=== PATIENT | female | born 1945 | race Caucasian/White ===

== ENCOUNTER 2017-01-27 08:34 | Inpatient (IN) | payer MEDICARE, OTHER ==
--- NOTE | 2017-01-27 09:28 | RAD ---
PORTABLE UPRIGHT FRONTAL CHEST RADIOGRAPH: DATE: 01/27/17. COMPARISON: 08/14/09. HISTORY: Short of breath, hypoxia. FINDINGS: FINDINGS: No pneumothorax, pleural fluid, focal consolidation, or alveolar edema. Heart and mediastinal contou rs are grossly unremarkable. The patient is slightly rotated to the right. There is mild pulmonary vascular congestion. IMPRESSION: No lobar consolidation or alveolar edema. POS: [facility]
[2017-01-27 09:34] LABS: #Lymphocytes 0.5 thou/uL (1.20-3.40); #Monocytes 1.8 thou/uL (0.11-0.59); #Neutrophils 17.6 thou/uL (1.40-6.50); %Basophils 0.1 % (0.0-1.0); %Eosinophils 0.2 % (0.0-10.0); %Lymphocytes 2.3 % (21.0-51.0); %Monocytes 9.1 % (0.0-10.0); Mean Platelet Volume 7.2 fL (7.4-10.4); Red Blood Cell (RBC) Count 4.71 mill/uL (4.20-5.40); White Blood Cell (WBC) Count 19.9 thou/uL (4.8-10.8)
[2017-01-27 09:41] LABS: PTT 28.6 SEC (22.9-36.1); Prothrombin Time 14.8 SEC (12.0-14.7)
[2017-01-27 09:55] LABS: ALT (SGPT) 11 U/L (8-55); AST (SGOT) 16 U/L (5-34); Alkaline Phosphatase 72 U/L (40-150); Anion Gap 14 mmol/L (10-20); BUN (Urea Nitrogen) 15 mg/dL (9.8-20.1); Bilirubin, Total 0.7 mg/dL (0.2-1.2); CK (CPK) 91 U/L (29-168); Calc. Creatinine Clearance 0 mL/min (70-130); Calcium 9.2 mg/dL (7.8-10.44); Carbon Dioxide 25 mmol/L (23-31); Chloride 102 mmol/L (98-107); Estimated GFR-MDRD 74; Globulin 3.2 g/dL (2.4-3.5); Protein, Total 6.9 g/dL (6.0-8.3)
[2017-01-27 09:56] LABS: Troponin I 0.076 ng/mL (< 0.028)
[2017-01-27 11:25] LABS: Lactic Acid - Sepsis 1.6 mmol/L (0.5-2.2)
[2017-01-27] MEDS ORDERED: Furosemide 40 MG/4 ML VIAL ONE (11:34)
[2017-01-27] MEDS ORDERED: Acetaminophen 325 MG TAB ONE (11:36)
[2017-01-27 12:36] LABS: Bilirubin Negative (Negative); Blood, Urine Moderate (Negative); Glucose, Urine (Dipstick) Negative (Negative); Ketone, Urine Trace mg/dL (Negative); Nitrite Negative (Negative); Protein, Urine (Dipstick) 300 mg/dL (Neg-Trace)
[2017-01-27 12:38] LABS: Bacteria/HPF 4+ HPF (None Seen); Hyaline Casts/LPF 0-3 HYALINE CAST LPF (0-3 Hyaline); Squamous Epithelial 0-3 HPF (0-3)
[2017-01-27 12:52] LABS: Yeast-All Forms None Seen HPF (None Seen)
[2017-01-27 13:29] LABS: Troponin I 0.161 ng/mL (< 0.028)
[2017-01-27] MEDS ORDERED: Levofloxacin 500 mg/D5W 100 ml Premix Bag ONE (13:29)
[2017-01-27] MEDS ORDERED: Acetaminophen 325 MG TAB PO PRN (14:18)
[2017-01-27] MEDS ORDERED: Ondansetron HCl/PF 4 MG/2 ML Vial IVP PRN (14:18)
[2017-01-27] MEDS ORDERED: Ondansetron ODT 4 MG TAB SL PRN (14:18)
[2017-01-27 15:47] LABS: Troponin I 0.187 ng/mL (< 0.028)
[2017-01-27] MEDS ORDERED: Dextrose 5% in Water 1,000 ML IV PRN (16:30)
[2017-01-27] MEDS ORDERED: Dextrose 50% Abboject 50 ML SYRINGE SLOW IVP PRN (16:30)
[2017-01-27] MEDS ORDERED: HumaLOG 300 UNITS/3 ML VIAL SC PRN (16:30)
[2017-01-27] MEDS ORDERED: Calcium Carbonate 500 MG ChewTAB PO PRN (16:30)
[2017-01-27 17:11] LABS: Hemoglobin A1c 5.1 % (4.0-6.0)
[2017-01-27] MEDS: Nicotine 14 MG PATCH TD SCH ×2 (17:46→21:08)
--- NOTE | 2017-01-27 19:28 | HP ---
CHIEF COMPLAINT: Shortness of breath. HISTORY OF PRESENT ILLNESS: This is a 71-year-old pleasant lady, who was apparently in usual state o f health, started getting more and more short of breath in the last couple of days. She went to [facility] because she thought she had a pneumonia on Friday. They did a quick evaluation in the ER and sent her back home because they did not find anything. Over the weekend, she got progressivel y worse to the point that she could not even move, so she called 911 and came into the hospital for f urther evaluation and treatment. She denies any fever or chills. The patient denies any chest pain or palpitations. The patient in the ER was found to be in atrial fibrillation with RVR and was put o n Cardizem drip and admitted to the hospital for evaluation and treatment of that. Patient denies an y fever, chills, diarrhea, dysuria, or polyuria. PAST MEDICAL HISTORY: Significant for hypertension, hypothyroidism, diet controlled diabetes, histor y of morbid obesity status post lap band and has lost 70 pounds and has stopped her diabetes medicati ons for that. Patient complains of itching in the intertriginous areas as well possibly secondary to fungal infection. PAST SURGICAL HISTORY: Significant for lap band, tonsil surgery, history of cardiac catheterization done 2 months back at [facility] which was apparently normal according to the patient. SOCIAL HISTORY: Positive smoking. No recreational drugs or alcohol use. ALLERGIES: PENICILLIN. MEDICATIONS: Please see MAR. FAMILY HISTORY: Negative for diabetes and hypertension. REVIEW OF SYSTEMS: Significant for shortness of breath; otherwise no fever, no chills, no headache, no eye pain, no hearing loss, no latencies. No cough, no chest pain. No diarrhea, dysuria, or polyu danitza. No memory or mood changes. No neck pain. The patient is significant for itching of the skin a t multiple areas of the fungal infection. PHYSICAL EXAMINATION: VITAL SIGNS: Blood pressure is 190/76, heart rate is 114, respirations 29, pulse ox initially was 70 % on room air, right now she was put on CPAP in the ER, it was 94; right now on 2 liters, it is 90%. GENERAL: Patient is lying in bed right now, in mild respiratory distress. HEENT: Normocephalic. Pupils are equally round and reactive to light. Extraocular movements are in tact. Mucous membranes are moist. NECK: Supple. No JVD. CHEST: Breath sounds heard. Bibasilar rales. HEART: S1 and S2 normal. Right now is rate controlled, is in sinus rhythm. ABDOMEN: Soft, obese. EXTREMITIES: No cyanosis, clubbing, or edema. Distal pulses present. NEUROLOGICAL: Alert, awake, oriented. No cranial deficits. No sensorimotor deficits. SKIN: Shows scaly lesions behind the ear in the intertriginous areas under the breast and between th e gluteal cheeks. PSYCHIATRIC: Mood is normal. LABORATORY DATA: WBC count is 19, hemoglobin is 13. UA shows evidence of wbc's. Chest x-ray shows CHF. Potassium was 3.2, creatinine is 0.7, troponin is 0.076. BNP is 882. EKG in the ER showed atr ial fibrillation. ASSESSMENT AND PLAN: 1. Shortness of breath with elevated BNP, possibly secondary to acute congestive heart failure exace rbation secondary to possible urinary tract infection. We will do urine culture and treat the patien t empirically with IV Levaquin. We will give the patient IV Lasix and Cardiology consult. We will r equest records from [facility]. We will do I's and O's and put the patient on low salt diet. 2. Coronary artery disease, recent cath. We will get the results from [facility]. 3. Atrial fibrillation with rapid ventricular response. On IV Cardizem. Right now, rate is control led. We will follow Cardiology plan. 4. Elevated white count, possibly secondary to urinary tract infection and a combination of extensiv e fungal infection. We will put the patient on IV Levaquin and some Diflucan and Nystatin powder. 5. Hypokalemia. We will replace that. 6. Acute hypoxic respiratory failure secondary to acute congestive heart failure. It is now better after the Lasix and will do p.r.n. oxygen and neb treatments as needed. 7. Yeast infection in the intertriginous area, possibly tinea corporis. We will treat with antifung als. 8. Hypothyroidism. We will continue home medication. 9. Tobacco use. The patient has been counseled. 10. Sequential compression devices for deep venous thrombosis prophylaxis. I will work with the tyrone ibrahim and further caring for the patient.
[2017-01-27 19:44] LABS: Troponin I 0.186 ng/mL (< 0.028)
[2017-01-27] MEDS: Docusate 100 MG CAP PO SCH (21:02)
[2017-01-27] MEDS: Nystatin Powder 15 GM BOT TOP SCH (21:03)
[2017-01-27 22:46] LABS: Troponin I 0.183 ng/mL (< 0.028)
[2017-01-28 04:48] LABS: #Eosinphils 0.1 thou/uL (0.0-0.7); #Lymphocytes 1.2 thou/uL (1.20-3.40); #Monocytes 1.5 thou/uL (0.11-0.59); #Neutrophils 11.7 thou/uL (1.40-6.50); %Basophils 0.1 % (0.0-1.0); %Eosinophils 0.4 % (0.0-10.0); %Monocytes 10.6 % (0.0-10.0); Hematocrit 36.9 % (36.0-47.0); Mean Platelet Volume 7.5 fL (7.4-10.4); Red Blood Cell (RBC) Count 4.12 mill/uL (4.20-5.40); White Blood Cell (WBC) Count 14.5 thou/uL (4.8-10.8)
[2017-01-28 04:55] LABS: ALT (SGPT) 10 U/L (8-55); AST (SGOT) 18 U/L (5-34); Alkaline Phosphatase 64 U/L (40-150); Anion Gap 12 mmol/L (10-20); BUN (Urea Nitrogen) 20 mg/dL (9.8-20.1); BUN/Creatinine Ratio 27.78; Bilirubin, Direct 0.3 mg/dL (0.1-0.3); Bilirubin, Total 0.6 mg/dL (0.2-1.2); Calc. Creatinine Clearance 95 mL/min (70-130); Calcium 8.6 mg/dL (7.8-10.44); Carbon Dioxide 28 mmol/L (23-31); Chloride 101 mmol/L (98-107); Cholesterol 130 mg/dl (< 200 Desired); Estimated GFR-MDRD 80; LDL Cholesterol, Calculated 59 mg/dL; Phosphorus 2.8 mg/dL (2.3-4.7); Protein, Total 6.1 g/dL (6.0-8.3)
[2017-01-28] MEDS: Furosemide 40 MG/4 ML VIAL SLOW IVP SCH ×2 (05:55→12:48)
[2017-01-28] MEDS: Potassium Chloride 20 MEQ TAB PO SCH (07:29)
[2017-01-28] MEDS: HYDROcodone/Acetaminophen 5/325 mg Tablet PO PRN (07:29)
[2017-01-28] MEDS: Docusate 100 MG CAP PO SCH ×2 (07:30→20:22)
[2017-01-28] MEDS: Fluconazole 100 MG TAB PO SCH (07:30)
[2017-01-28] MEDS: Nystatin Powder 15 GM BOT TOP SCH ×2 (07:31→20:22)
--- NOTE | 2017-01-28 09:07 | RAD ---
CHEST ONE VIEW: HISTORY: Pneumonia. COMPARISON: Chest one view prior day. FINDINGS: Lungs are clear. No pneumothorax or effusion. Cardiac silhouette and mediastinal contours are withi n normal limits. IMPRESSION: No acute intrathoracic abnormality. POS: [facility]
--- NOTE | 2017-01-28 11:16 | CON ---
DATE OF CONSULTATION: 01/28/2017 CONSULTING PHYSICIAN: Hospitalist group. REASON FOR CONSULTATION: Acute respiratory failure. HISTORY OF PRESENT ILLNESS: Ms. Lloyd is a pleasant 71-year-old female who presented to the [facility] last night with shortness of breath and decreasing responsiveness. She was found to be in atrial f ibrillation with a rapid ventricular response. As far she knows, this is the first time she has expe rienced atrial fibrillation. She was seen at the [facility] emergency room over the weekend with similar symptoms, but at that time, nothing was found and she was discharged home. She is a 2-pack per day smoker, but says she has never been diagnosed with any type of obstructive isac ng disease. PAST MEDICAL HISTORY: 1. Hypertension. 2. Hypothyroidism. PAST SURGICAL HISTORY: Remarkable for lap band placement, tonsillectomy, cardiac catheterization wit h normal coronaries. SOCIAL HISTORY: She smoked 2 packs per day since about 8:30. Does not use any recreational drugs, d oes not consume alcohol. ALLERGIES: PENICILLIN. FAMILY MEDICAL HISTORY: Essentially unremarkable. REVIEW OF SYSTEMS: Has had no fever, chills, cough, congestion, hematemesis, melena, hematochezia, h ematuria, or dysuria. MEDICATIONS: Donepezil 5 mg daily, nitroglycerin as needed, Atarax 25 mg 4 times daily, Meloxicam 15 mg daily, lisinopril 20 mg daily, levothyroxine 137 mcg daily, terbinafine 250 mg daily, duloxetine 60 mg daily, clotrimazole and betamethasone cream 3 times daily to skin. PHYSICAL EXAMINATION: VITAL SIGNS: Temperature 97.6, pulse 80, respirations 16, O2 sat 98% on 3 liters, blood pressure 148 /68. HEENT: Unremarkable. NECK: No adenopathy or JVD. CHEST: Few crackles in the bases, otherwise clear. CARDIAC: S1 and S2, now regular without murmur. ABDOMEN: Soft, nontender. EXTREMITIES: Without clubbing, cyanosis, or edema. LABORATORY DATA AND IMAGING: White blood cell count 14.5, hematocrit 36.9, platelet count 207. Sodi um 138, potassium 3, chloride 101, CO2 28, BUN 20, creatinine 0.7, glucose 137. Chest x-ray was revi ewed personally by me this morning, does not show any significant findings. Lung brambila are clear. Echocardiogram demonstrated an EF of 35%-40%. There was some suggestion of diastolic dysfunction. ASSESSMENT: 1. Congestive heart failure - improved with diuretics and BiPAP overnight. 2. Atrial fibrillation, now converted to sinus rhythm. 3. Possible underlying chronic obstructive pulmonary disease. RECOMMENDATIONS: 1. Bedside PFT. 2. Consider stopping antibiotics since does not appear to be an active infection. 3. She is stable enough to transfer to the Telemetry Unit.
--- NOTE | 2017-01-28 11:30 | CON ---
DATE OF CONSULTATION: 01/28/2017 REASON FOR CONSULTATION: 1. Congestive heart failure. 2. Left bundle branch block. 3. Atrial fibrillation. HISTORY OF PRESENT ILLNESS: Ms. Neelam Mora is a pleasant 71-year-old woman, who has been followed at [facility]. The patient states that she has undergone cardiac catheterization for "abnormal EKG" and was found to have "no abnormalities." On the catheterization according to the patient, rec ords have been requested. The patient states that she has been getting progressively more short of b reath over the last few weeks. She went to the [facility] Emergency Room on Friday, but she w as seen there and then released home. Her breathing got progressively worse. Finally, she came here to the emergency room last night and was found to be in congestive heart failure and also she was fo und to be in atrial fibrillation with a rapid rate. Patient also had some chest pain on arrival here. She is resting more comfortably now. She has received intravenous diuretics and intravenous diltiaze m. MEDICATIONS PRIOR TO ADMISSION: 1. Levothyroxine. 2. Meloxicam. 3. Lisinopril. 4. Nitroglycerin. 5. Aricept. ALLERGIES: PENICILLIN. REVIEW OF SYSTEMS: CONSTITUTIONAL: No significant weight gain or loss. VISION: No changes. HEARING: No changes. PULMONARY: No cough or wheezing. GASTROINTESTINAL: No nausea, vomiting, diarrhea. SKIN: No rashes. CARDIOVASCULAR: As outlined above. GI: No nausea, vomiting, diarrhea. SKIN: No rashes. NEUROLOGIC: No unilateral weakness or numbness. PSYCHIATRIC: No unusual depression or anxiety. FAMILY HISTORY: Father had heart disease in a much older age. PHYSICAL EXAMINATION: GENERAL: This is a pleasant elderly woman, who says she is breathing much better now. VITAL SIGNS: Blood pressure 148/68. Pulse 88, regular. LUNGS: Clear. CARDIAC: Normal S1, normal S2. I do not hear any murmur, rub, or gallop. ABDOMEN: Soft, nontender, no hepatosplenomegaly. EXTREMITIES: Warm, dry, no clubbing, cyanosis or edema. Peripheral pulses are intact. PERTINENT LABORATORY AND X-RAY FINDINGS: Troponin 0.186. BNP 882. Chest x-ray shows congestive hea rt failure. Other labs, potassium 3.0. EKG reveals atrial fibrillation, left bundle branch block and intermittent sinus rhythm. Echocardiogram revealed ejection fraction of 35% to 40%. ASSESSMENT: 1. Congestive heart failure, systolic and diastolic. 2. Ejection fraction 35% to 40%. 3. Left bundle branch block. 4. Atrial fibrillation with a rapid ventricular response. 5. By report, normal coronary arteries. I have requested records yesterday and that has been re-req uested today. PLAN: 1. Continue diuretics. 2. Add amiodarone. 3. The best treatment would be a biventricular pacemaker. We will discuss this with Dr. Mendez in vie w of ejection fraction 35% to 40% or other nurse college if available. 4. She will need anticoagulation long-term.
[2017-01-28] MEDS ORDERED: Enoxaparin Sodium 80 MG/0.8 ML SYRINGE SC SCH (12:00)
[2017-01-28 12:45] VITALS: BMI 34.0
--- NOTE | 2017-01-28 15:00 | PDOC.PN ---
- Subjective Encounter Start Date: 01/28/17 Encounter Start Time: 14:54 Patient seen and examined. No new complaints. No overnight events - Objective MAR Reviewed: Yes Vital Signs & Weight: Vital Signs (12 hours) Temp Pulse Pulse Pulse Resp BP BP 01/28/17 11:40 97.6 F 87 18 01/28/17 10:40 85 88 120/60 138/55 L 01/28/17 07:40 97.6 F 88 16 01/28/17 07:07 98.3 F 78 20 01/28/17 04:00 98.3 F 78 20 BP BP Pulse Ox 01/28/17 11:40 132/51 L 98 01/28/17 10:40 01/28/17 07:40 148/68 H 98 01/28/17 07:07 99 01/28/17 04:00 153/60 H 98 Weight Admit Weight 188 lb 9.6 oz Weight 186 lb 6.4 oz I&O: 01/27/17 01/28/17 01/29/17 06:59 06:59 06:59 Intake Total 268 460 Output Total 550 1000 Balance -282 -540 Result Diagrams: 01/28/17 03:40 01/28/17 03:40 Additional Labs: Accuchecks 01/28/17 01/28/17 01/28/17 12:38 09:32 01:31 POC Glucose 149 H 195 H 139 H 01/27/17 16:45 POC Glucose 110 Phys Exam - Physical Examination Constitutional: NAD HEENT: PERRLA Neck: no JVD Respiratory: no wheezing bibasilar rales Cardiovascular: RRR, no significant murmur Gastrointestinal: non-tender Musculoskeletal: no edema Neurological: normal sensation Psychiatric: A&O x 3 Dx/Plan (1) Acute CHF Code(s): I50.9 - HEART FAILURE, UNSPECIFIED Status: Acute Comment: mixed ef- 35% (2) Afib Code(s): I48.91 - UNSPECIFIED ATRIAL FIBRILLATION Status: Acute (3) UTI (urinary tract infection) Status: Acute (4) Tinea corporis Code(s): B35.4 - TINEA CORPORIS Status: Acute (5) Hypokalemia Code(s): E87.6 - HYPOKALEMIA Status: Acute (6) Hypothyroid Code(s): E03.9 - HYPOTHYROIDISM, UNSPECIFIED Status: Acute (7) Tobacco use Code(s): Z72.0 - TOBACCO USE Status: Acute - Plan * f/u card plan for anticoag and for rate control * f/u dr villalba plan * f/u ur cul * f/u labs and replace pot
[2017-01-28] MEDS: Nicotine 14 MG PATCH TD SCH (15:48)
--- NOTE | 2017-01-28 16:44 | EKG ---
Test Reason : Blood Pressure : / mmHG Vent. Rate : 090 BPM Atrial Rate : 090 BPM P-R Int : 148 ms QRS Dur : 134 ms QT Int : 430 ms P-R-T Axes : -18 -22 133 degrees QTc Int : 526 ms Sinus rhythm with Premature supraventricular complexes Left bundle branch block Abnormal ECG Confirmed by ANDREW PERRIN ([id number]) on 01/28/2017 4:43:44 PM Referred By: HARMONY Confirmed By:ANDREW PERRIN
[2017-01-28] MEDS: Apixaban 5 MG TAB PO SCH (20:22)
[2017-01-29] MEDS: Furosemide 40 MG/4 ML VIAL SLOW IVP SCH (05:26)
[2017-01-29 05:52] LABS: #Eosinphils 0.1 thou/uL (0.0-0.7); #Lymphocytes 1.4 thou/uL (1.20-3.40); #Monocytes 1.2 thou/uL (0.11-0.59); #Neutrophils 8.6 thou/uL (1.40-6.50); %Basophils 0.3 % (0.0-1.0); %Eosinophils 0.9 % (0.0-10.0); %Lymphocytes 12.1 % (21.0-51.0); %Monocytes 10.7 % (0.0-10.0); Hematocrit 40.4 % (36.0-47.0); Mean Platelet Volume 7.1 fL (7.4-10.4); Red Blood Cell (RBC) Count 4.47 mill/uL (4.20-5.40); White Blood Cell (WBC) Count 11.3 thou/uL (4.8-10.8)
--- NOTE | 2017-01-29 06:17 | CON ---
DATE OF CONSULTATION: 01/28/2017 ELECTROPHYSIOLOGY CONSULTATION REPORT REFERRING PHYSICIAN: Rosie Champagne I am seeing Ms. Lloyd at our [facility] telemetry floor as an electrophysiology vm[employer] consultant. Her problems are: 1. Newly found paroxysmal atrial fibrillation. A. Good response to IV amiodarone converting back to sinus rhythm. 2. Chronic left bundle branch block. 3. New onset congestive heart failure with likely nonischemic cardiomyopathy, possibly , LVEF i n 09/2016 at 65%, now down to 35-40%. B. Left heart catheterization on 10/04/2016 was negative for significant coronary artery disease. 4. Coronary artery risk factors for hypertension, hyperlipidemia, and type 2 diabetes. 5. Possible COPD. ALLERGIES: PENICILLIN. MEDICATIONS AT HOME: Included donepezil, nitroglycerin, hydroxyzine, meloxicam, lisinopril 10 mg a d ay, levothyroxine 137 mcg a day, terbinafine, duloxetine, clotrimazole. SUBJECTIVE: Mr. Lloyd was admitted on the with symptoms of progressive dyspnea and was found t o be in atrial fibrillation with rapid rates, elevated BNP and signs of fluid overload was noted. Sh isma has actually been evaluated recently in [facility] ER where she went with concerns of pneumoni a, although she was evaluated and nothing was found. She was advised to go home. There is no defini te history of atrial fibrillations from prior. She has no fever, chills or cough. No stroke-like sy mptoms. No neurological deficits and rest of 12-point review of systems otherwise unremarkable. PAST MEDICAL HISTORY: As above. She has had extensive cardiac evaluation in 09/2016 with left heart catheterization in demonstrating no significant barrow coronary artery disease. Also 2D echo at [facility] t time revealed normal LVEF. She has no prior history of heart failure. She has dementia alth ough she exhibits good insight to her medical condition currently. There is no PND or orthopnea curr ently after diuresis. No palpitations and also in the hospital she is converting back to normal rhyt hm on the IV diltiazem and p.o. amiodarone. SOCIAL HISTORY: The patient denies ETOH or drug use. She does smoke. FAMILY HISTORY: Negative for diabetes and hypertension. OBJECTIVE: VITAL SIGNS: Blood pressure is 132/51, heart rate 87, respirations 18, temperature 97.6 degrees Fahr enheit. GENERAL: She is alert and oriented woman in no apparent distress. NECK: Supple. Jugular veins are not distended. CHEST: Coarse without crackles. CARDIOVASCULAR: Heart sounds are now regular to rate and rhythm. No murmur or gallop. ABDOMEN: Benign. Bowel sounds positive. EXTREMITIES: Lower extremities without edema, clubbing or cyanosis. DATABASE: Initial EKG reveals atrial fibrillation with rapid ventricular rates. Left bundle branch block pattern is seen. Subsequent EKG from today reveals sinus rhythm with continued left bundle bra nch block. QTC today is 526 milliseconds, QRS duration 134 milliseconds measured. LABORATORY DATA: White count is 4.5, hemoglobin 12.3, platelet count are 207, the INR 1.1. Sodium 1 30, potassium 3, BUN is 20, creatinine 0.72. AST, ALT 18 and 10. Troponin I is 0.183. BNP initiall y was 882. The chest x-ray on admit reveals no acute abnormality. ASSESSMENT AND PLAN: Ms. Lloyd is a pleasant 71-year-old woman with prior history of dyspnea, who h ad progressive dyspnea and found to be in new onset heart failure and atrial fibrillation with rapid rates. Her left ventricular ejection fraction has been normal in the past. She also has chronic left bundle branch block, left heart catheterization before showed no significan t coronary occlusions. My plan would be at this point, 1. I think this lady's cardiomyopathy possibly rate related. She has minimal symptoms of palpitatio n that her heart was significantly racing. It is reasonable to control her atrial fibrillation with initiating amiodarone at least intermediate period of a couple of months. This might later cardiac status recover. Subsequent to that, we might need to make decisions about further medical or ablativ e management of atrial fibrillation that recurs. 2. She continued to have difficult issues with rate control or heart failure and the LVEF remains in the current range. She might benefit from biventricular pacing as well. If the LVEF further worsen s, biventricular ICD might be a consideration. 3. Oral anticoagulation needs to be initiated for chronic long-term therapy hence her CHADs-VASc sco re of 4. We will defer to Dr. Funez. Thank you again for allowing me to participate in the care of this patient.
[2017-01-29 06:23] LABS: Anion Gap 15 mmol/L (10-20); BUN (Urea Nitrogen) 21 mg/dL (9.8-20.1); BUN/Creatinine Ratio 25.61; Calc. Creatinine Clearance 75 mL/min (70-130); Calcium 9.5 mg/dL (7.8-10.44); Carbon Dioxide 28 mmol/L (23-31); Chloride 98 mmol/L (98-107); Estimated GFR-MDRD 69; Phosphorus 2.3 mg/dL (2.3-4.7)
[2017-01-29] MEDS: Fluconazole 100 MG TAB PO SCH (07:46)
[2017-01-29] MEDS: Docusate 100 MG CAP PO SCH ×2 (07:46→20:25)
[2017-01-29] MEDS: Apixaban 5 MG TAB PO SCH (07:46)
[2017-01-29] MEDS: Potassium Chloride 20 MEQ TAB PO SCH (07:47)
[2017-01-29] MEDS: Nystatin Powder 15 GM BOT TOP SCH ×2 (07:47→20:25)
[2017-01-29] MEDS ORDERED: Enoxaparin Sodium 80 MG/0.8 ML SYRINGE SC SCH (09:00)
--- NOTE | 2017-01-29 09:00 | PRG ---
DATE OF SERVICE: 01/29/2017 Ms. Lloyd feels better, no complaints. Breathing is improved. PHYSICAL EXAMINATION: VITAL SIGNS: Blood pressure 156/61, pulse in the 80s. LUNGS: Clear. CARDIAC: Mild irregularity. LUNGS: Clear. ABDOMEN: Soft, nontender. EXTREMITIES: No edema. ASSESSMENT: 1. Congestive heart failure, systolic and diastolic, improving. 2. Hypertension. 3. Atrial fibrillation. 4. Very wide left bundle branch block. 5. QRS duration on the initial EKG was 130, but it looks wider on the monitor now. PLAN: 1. Continue amiodarone. 2. Reduce diltiazem. 3. Add CHRISTIE inhibitor. 4. Dr. Mendez preferred to hold off on the biventricular pacemaker to see if the left ventricular func tion will improve or improve on medical therapy.
[2017-01-29] MEDS: Losartan Potassium 25 MG TAB PO SCH (09:07)
--- NOTE | 2017-01-29 09:28 | PRG ---
DATE OF SERVICE: 01/29/2017 SUBJECTIVE: The patient is doing well, has no complaints other than she wants a diabetic diet. PHYSICAL EXAMINATION: VITAL SIGNS: Temperature is 98.1, pulse 84, respirations 20, O2 sat 95% on 2 liters, blood pressure 156/61. HEENT: Unremarkable. NECK: No JVD. LUNGS: Clear. CARDIAC: S1 and S2 regular. ABDOMEN: Soft. EXTREMITIES: No edema. LABORATORY DATA: White blood cell count 11.3, hematocrit 40, platelet count 243. Sodium 130, potass ium 3.4, BUN 21, creatinine 0.8, glucose 155. ASSESSMENT: 1. Paroxysmal atrial fibrillation. 2. Congestive heart failure. 3. Possible underlying chronic obstructive pulmonary disease. PLAN: Switch to a diabetic diet. She can be likely transferred out to telemetry floor.
[2017-01-29 12:11] LABS: Hematocrit 43.1 % (36.0-47.0)
--- NOTE | 2017-01-29 13:10 | EKG ---
Test Reason : Blood Pressure : / mmHG Vent. Rate : 090 BPM Atrial Rate : 090 BPM P-R Int : 194 ms QRS Dur : 134 ms QT Int : 416 ms P-R-T Axes : 000 -29 121 degrees QTc Int : 508 ms Normal sinus rhythm Left bundle branch block Abnormal ECG Confirmed by ANDREW PERRIN ([id number]) on 01/29/2017 1:09:42 PM Referred By: HARMONY Confirmed By:ANDREW PERRIN
--- NOTE | 2017-01-29 14:59 | PDOC.PN ---
- Subjective Encounter Start Date: 01/29/17 Encounter Start Time: 14:58 Patient seen and examined. No new complaints. No overnight events - Objective MAR Reviewed: Yes Vital Signs & Weight: Vital Signs (12 hours) Temp Pulse Pulse Pulse Resp BP BP 01/29/17 12:00 98.8 F 89 20 01/29/17 10:06 97 94 137/64 142/58 H 01/29/17 07:50 98.1 F 84 20 01/29/17 07:44 98.1 F 84 20 01/29/17 03:34 98.5 F 84 20 BP BP Pulse Ox 01/29/17 12:00 135/58 L 94 L 01/29/17 10:06 01/29/17 07:50 95 01/29/17 07:44 156/61 H 98 01/29/17 03:34 154/65 H 94 L Weight Admit Weight 188 lb 9.6 oz Weight 168 lb 14.4 oz I&O: 01/28/17 01/29/17 01/30/17 06:59 06:59 06:59 Intake Total 268 1840 Output Total 550 2950 Balance -282 -1110 Result Diagrams: 01/29/17 11:57 01/29/17 11:57 Additional Labs: Accuchecks 01/29/17 01/28/17 05:55 18:02 POC Glucose 147 H 168 H Phys Exam - Physical Examination Constitutional: NAD HEENT: PERRLA Neck: no JVD Respiratory: no wheezing Gastrointestinal: non-tender Musculoskeletal: pulses present Neurological: moves all 4 limbs Psychiatric: A&O x 3 Dx/Plan (1) Acute CHF Code(s): I50.9 - HEART FAILURE, UNSPECIFIED Status: Acute Comment: mixed ef- 35% (2) Afib Code(s): I48.91 - UNSPECIFIED ATRIAL FIBRILLATION Status: Acute (3) UTI (urinary tract infection) Status: Acute (4) Tinea corporis Code(s): B35.4 - TINEA CORPORIS Status: Acute (5) Hypokalemia Code(s): E87.6 - HYPOKALEMIA Status: Acute (6) Hypothyroid Code(s): E03.9 - HYPOTHYROIDISM, UNSPECIFIED Status: Acute (7) Tobacco use Code(s): Z72.0 - TOBACCO USE Status: Acute - Plan * ecoli uti - cont abx * f/u card plan * pt/ot * pacemaker as out pt
[2017-01-29] MEDS: Furosemide 20 MG TAB PO SCH (15:04)
[2017-01-29] MEDS: Nicotine 14 MG PATCH TD SCH (15:05)
[2017-01-29] MEDS: Enoxaparin Sodium 80 MG/0.8 ML SYRINGE SC SCH (20:24)
--- NOTE | 2017-01-29 23:54 | PRG ---
DATE OF SERVICE: 01/29/2017 SUBJECTIVE: Ms. Lloyd is doing well today. No palpitations. She is maintaining sinus rhythm. She has not slept well, but this is a chronic problem for her. OBJECTIVE: VITAL SIGNS: Blood pressure is 135/58, heart rate 89, respirations 20, temperature 98.8 degrees Fahrenheit. GENERAL: This is an alert and oriented woman in no apparent distress. NECK: Supple. Jugular veins not distended. CHEST: Coarse without crackles. CARDIOVASCULAR: Heart sounds are regular to rate and rhythm. No murmur or gallop. ABDOMEN: Benign. Bowel sounds positive. EXTREMITIES: Lower extremity edema, clubbing or cyanosis. DATABASE: The telemetry strips reveals sinus rhythm. No recurrent atrial arrhythmias. ASSESSMENT AND PLAN: Ms. Lloyd is a pleasant 71-year-old woman with prior history of mild dementia who has had normal left ventricular ejection fraction back in September. She is newly found to be in persistent atrial fibrillation and new onset heart failure. Her left ventricular ejection fraction is now 35%-40% . I suspect this might be a rate related worsening of her left ventricular dysfunction. She has been started on amiodarone and her rhythm controlled back to sinus rhythm. For now it is reasonable to continue with amiodarone intermediate term. We should likely assess her left ventricular function in 3 months, hence if no improvement is seen, biventricular pacing could be considered at that time. Also add oral anticoagulation. We will see her as an outpatient. MIESHA
[2017-01-30 04:51] LABS: #Eosinphils 0.3 thou/uL (0.0-0.7); #Lymphocytes 2.1 thou/uL (1.20-3.40); #Monocytes 1.1 thou/uL (0.11-0.59); #Neutrophils 6.8 thou/uL (1.40-6.50); %Basophils 0.3 % (0.0-1.0); %Eosinophils 2.6 % (0.0-10.0); %Lymphocytes 20.6 % (21.0-51.0); %Monocytes 10.4 % (0.0-10.0); Hematocrit 39.6 % (36.0-47.0); Mean Platelet Volume 7.2 fL (7.4-10.4); Red Blood Cell (RBC) Count 4.41 mill/uL (4.20-5.40); White Blood Cell (WBC) Count 10.2 thou/uL (4.8-10.8)
[2017-01-30 05:19] LABS: Anion Gap 12 mmol/L (10-20); BUN (Urea Nitrogen) 27 mg/dL (9.8-20.1); Calc. Creatinine Clearance 72 mL/min (70-130); Calcium 9.7 mg/dL (7.8-10.44); Carbon Dioxide 31 mmol/L (23-31); Chloride 97 mmol/L (98-107); Estimated GFR-MDRD 65; Phosphorus 3.3 mg/dL (2.3-4.7)
[2017-01-30] MEDS: Losartan Potassium 25 MG TAB PO SCH ×2 (08:18→08:59)
[2017-01-30] MEDS: Furosemide 20 MG TAB PO SCH ×2 (08:19→13:49)
[2017-01-30] MEDS: Fluconazole 100 MG TAB PO SCH (08:19)
[2017-01-30] MEDS: Potassium Chloride 20 MEQ TAB PO SCH (08:19)
[2017-01-30] MEDS: Docusate 100 MG CAP PO SCH ×2 (08:20→20:16)
[2017-01-30] MEDS: Nystatin Powder 15 GM BOT TOP SCH ×2 (08:21→20:16)
[2017-01-30] MEDS: Enoxaparin Sodium 80 MG/0.8 ML SYRINGE SC SCH (08:21)
--- NOTE | 2017-01-30 08:52 | PRG ---
DATE OF SERVICE: 01/30/2017 SUBJECTIVE: Ms. Lloyd is doing really much better today. She is breathing better, in fact, she is asymptomatic. No chest pain. OBJECTIVE: VITAL SIGNS: Blood pressure 143/52, pulse 70. It is sinus on the monitor. LUNGS: Clear. CARDIAC: Normal S1 and S2. ASSESSMENT: 1. Left bundle branch block with QRS duration of 134, somewhat more like 140. 2. Paroxysmal atrial fibrillation. 3. Cardiomyopathy, ejection fraction 35-40%, some of that may be rate related to myopathy. PLAN: 1. Continue amiodarone. 2. She is on Lovenox. 3. She will change to Xarelto when she goes home, probably go home tomorrow. 4. Continue to replete potassium which is low. 5. She will probably go home tomorrow.
--- NOTE | 2017-01-30 11:41 | PRG ---
DATE OF SERVICE: 01/30/2017 SUBJECTIVE: Ms. Lloyd states she is feeling great. OBJECTIVE: VITAL SIGNS: She is afebrile, heart rate is 74, respiratory rate is 18, oximetry is 95 on room air, blood pressure 143/52. LUNGS: Clear. HEART: Regular rhythm. ABDOMEN: Soft. IMPRESSION: 1. Chronic obstructive pulmonary disease, stable. 2. Left bundle branch block. 3. Paroxysmal atrial fibrillation. 4. Systolic cardiomyopathy. PLAN: Continue amiodarone, anticoagulation. She is probably stable to go home in 24-48 hours.
[2017-01-30] MEDS ORDERED: Potassium Chloride 20 MEQ TAB PO SCH (11:45)
[2017-01-30] MEDS: Nicotine 14 MG PATCH TD SCH (13:50)
--- NOTE | 2017-01-30 14:05 | PDOC.PN ---
- Subjective Encounter Start Date: 01/30/17 Encounter Start Time: 14:04 Patient seen and examined. No new complaints. No overnight events - Objective MAR Reviewed: Yes Vital Signs & Weight: Vital Signs (12 hours) Temp Pulse Resp BP Pulse Ox 01/30/17 12:00 97.8 F 92 20 185/64 H 01/30/17 07:53 97.4 F L 74 18 95 01/30/17 07:44 97.4 F L 74 18 143/52 H 95 01/30/17 04:00 98 F 81 16 159/62 H 94 L Weight Admit Weight 188 lb 9.6 oz Weight 170 lb 1.6 oz I&O: 01/29/17 01/30/17 01/31/17 06:59 06:59 06:59 Intake Total 1840 200 Output Total 2950 450 Balance -1110 -250 Result Diagrams: 01/30/17 04:31 01/30/17 04:31 Additional Labs: Accuchecks 01/30/17 01/29/17 01/29/17 09:59 20:39 17:27 POC Glucose 159 H 146 H 178 H Phys Exam - Physical Examination Constitutional: NAD HEENT: PERRLA Neck: no JVD Respiratory: no wheezing Cardiovascular: no significant murmur, irregular Gastrointestinal: non-tender Musculoskeletal: pulses present Neurological: moves all 4 limbs Psychiatric: A&O x 3 Dx/Plan (1) Acute CHF Code(s): I50.9 - HEART FAILURE, UNSPECIFIED Status: Acute Comment: mixed ef- 35% (2) Afib Code(s): I48.91 - UNSPECIFIED ATRIAL FIBRILLATION Status: Acute (3) UTI (urinary tract infection) Status: Acute (4) Tinea corporis Code(s): B35.4 - TINEA CORPORIS Status: Acute (5) Hypokalemia Code(s): E87.6 - HYPOKALEMIA Status: Acute (6) Hypothyroid Code(s): E03.9 - HYPOTHYROIDISM, UNSPECIFIED Status: Acute (7) Tobacco use Code(s): Z72.0 - TOBACCO USE Status: Acute - Plan * cont current plan * f/u card plan * possible d/c in am
[2017-01-30] MEDS: HYDROcodone/Acetaminophen 5/325 mg Tablet PO PRN (18:03)
[2017-01-30] MEDS: Apixaban 5 MG TAB PO SCH (20:16)
[2017-01-31 05:31] LABS: Anion Gap 15 mmol/L (10-20); BUN (Urea Nitrogen) 29 mg/dL (9.8-20.1); BUN/Creatinine Ratio 24.17; Calc. Creatinine Clearance 52 mL/min (70-130); Calcium 10.2 mg/dL (7.8-10.44); Carbon Dioxide 29 mmol/L (23-31); Chloride 97 mmol/L (98-107); Estimated GFR-MDRD 44
[2017-01-31] MEDS ORDERED: Furosemide 20 MG TAB PO SCH (08:27)
[2017-01-31] MEDS ORDERED: Carvedilol 3.125 MG TAB PO SCH ×2 (08:45→17:00)
[2017-01-31] MEDS: Losartan Potassium 25 MG TAB PO SCH (08:52)
[2017-01-31] MEDS: Apixaban 5 MG TAB PO SCH (08:53)
[2017-01-31] MEDS: Fluconazole 100 MG TAB PO SCH (08:53)
[2017-01-31] MEDS: Docusate 100 MG CAP PO SCH (08:53)
[2017-01-31] MEDS: Nystatin Powder 15 GM BOT TOP SCH (08:54)
--- NOTE | 2017-01-31 08:59 | RAD ---
LEFT KNEE 2 VIEWS: Date: 01/31/17 HISTORY: Fall. Left knee pain. FINDINGS/IMPRESSION: Postop changes are seen in the distal femur with presence of four screws. There are degenerative luu ges in the knee joint. No acute fracture or dislocation is identified. POS: N[facility]
--- NOTE | 2017-01-31 08:59 | RAD ---
2 VIEWS RIGHT KNEE: Date: 01/31/17 HISTORY: Fall. FINDINGS/IMPRESSION: AP and lateral views of right knee obtained. Two views of the right knee demonstrate osteophytes and joint space narrowing in the medial and lateral compartments of the right knee. Findings compatible w ith a moderate degree of right knee osteoarthritis. No evidence of acute fractures or bony lesions se en. POS: [facility]
--- NOTE | 2017-01-31 10:02 | PRG ---
DATE OF SERVICE: 01/31/2017 SUBJECTIVE: Ms. Lloyd is doing well today from a cardiac standpoint. No chest pain or pressure. U nfortunately, she got up and tripped over something and fell into her knees. She has got enough x-ra ys of her knees. OBJECTIVE: VITAL SIGNS: Her blood pressure is 154/65, pulse 88 and it is regular. LUNGS: Clear. CARDIAC: Normal S1, S2. LABORATORY DATA AND IMAGING: The creatinine has gone up to 1.2, it was 0.86 previously. The potassi um is 3.9. EKG shows sinus rhythm with a left bundle branch block pattern, QRS duration is 0.136. ASSESSMENT: 1. Atrial arrhythmias, now in sinus rhythm. 2. Atrial fibrillation, also had some what looked like atrial flutter at least briefly a few days ag o. 3. Ejection fraction about 35% as outlined in the echo, we are hopeful that her ejection fraction wi ll improve with rate control. She was tachycardic on admission. 4. Renal insufficiency worsen. PLAN: 1. Reduce furosemide to 20 mg twice a day instead of 40 mg twice a day. She will skip the diuretic tomorrow. 2. Losartan 100 mg a day. 3. Amiodarone 200 mg twice a day for 2 weeks, then 200 mg once a day. 4. Add Coreg 3.125 mg twice a day. Okay to be released home.
[2017-01-31] MEDS ORDERED: Mag-Al 1200 mg/1200 mg/30 ML UDCUP PO PRN (11:33)
[2017-01-31 12:33] VITALS: BP 163/63; TEMP 97.6
--- NOTE | 2017-01-31 12:46 | PDOC.PN ---
- Subjective Encounter Start Date: 01/31/17 Encounter Start Time: 12:45 Patient seen and examined. No new complaints. No overnight events - Objective MAR Reviewed: Yes Vital Signs & Weight: Vital Signs (12 hours) Temp Pulse Resp BP Pulse Ox 01/31/17 12:00 97.6 F 65 20 163/63 H 93 L 01/31/17 08:37 96 01/31/17 08:00 97.8 F 88 20 96 01/31/17 07:43 97.8 F 88 20 154/65 H 96 01/31/17 04:35 98.1 F 83 20 165/70 H 97 Weight Admit Weight 188 lb 9.6 oz Weight 169 lb 4.8 oz I&O: 01/30/17 01/31/17 02/01/17 06:59 06:59 06:59 Intake Total 200 720 Output Total 450 Balance -250 720 Result Diagrams: 01/30/17 04:31 01/31/17 04:52 Additional Labs: Accuchecks 01/31/17 01/30/17 11:58 20:57 POC Glucose 129 H 160 H Phys Exam - Physical Examination Constitutional: NAD HEENT: PERRLA Respiratory: no wheezing Cardiovascular: no significant murmur Gastrointestinal: non-tender Musculoskeletal: pulses present Neurological: moves all 4 limbs Psychiatric: A&O x 3 Dx/Plan (1) Acute CHF Code(s): I50.9 - HEART FAILURE, UNSPECIFIED Status: Acute Comment: mixed ef- 35% (2) Afib Code(s): I48.91 - UNSPECIFIED ATRIAL FIBRILLATION Status: Acute (3) UTI (urinary tract infection) Status: Acute (4) Tinea corporis Code(s): B35.4 - TINEA CORPORIS Status: Acute (5) Hypokalemia Code(s): E87.6 - HYPOKALEMIA Status: Acute (6) Hypothyroid Code(s): E03.9 - HYPOTHYROIDISM, UNSPECIFIED Status: Acute (7) Tobacco use Code(s): Z72.0 - TOBACCO USE Status: Acute - Plan * doing good * d/c with outpt f/u with card and pcp
[2017-01-31 13:17] LABS: Hematocrit 42.3 % (36.0-47.0)
--- NOTE | 2017-01-31 13:39 | DIS ---
DATE OF ADMISSION: 01/27/2017 DATE OF DISCHARGE: 01/31/2017 DISCHARGE DIAGNOSES: 1. Acute congestive heart failure, mixed in nature with ejection fraction of 35%, stable. 2. Atrial fibrillation, rate controlled and now in sinus, stable on anticoagulation. 3. Urinary tract infection secondary to Escherichia coli, stable. 4. Tenia corporis stable. 5. Hypokalemia, resolved. 6. Hypothyroidism, stable. 7. Tobacco use, stable. DISCHARGE MEDICATIONS: Include Eliquis 5 mg p.o. b.i.d., amiodarone 200 mg p.o. b.i.d. 2 weeks and t hen 200 mg daily after that, losartan 100 mg p.o. daily, Lasix 20 p.o. b.i.d., Coreg 3.125 p.o. b.i.d ., Levaquin 750 p.o. daily for 7 days in addition to the other home medications Discontinued lisinopril from home medications. CONSULTANTS ON THE CASE: Dr. Mendez and Dr. Funez. BRIEF HOSPITAL COURSE: This is a 71-year-old pleasant lady who was apparently in her usual state of health, came into the hospital with shortness of breath. Please refer to my H&P for further details. She was aggressively diuresed this hospital stay, Cardiology evaluated the patient. They further r ate controlled. She was put on Cardizem and then amiodarone. She was anticoagulated with Lovenox an d then it was changed to Eliquis. She is right now in sinus rhythm. Dr. Mendez evaluated her and said that he would follow up with her as an outpatient to do EP studies. Cardiology is okay with her goi ng home right now. The patient had also had urinary tract infection which grew E. coli sensitive to Levaquin. She is doing better from that aspect. The patient also had tenia corporis for which local and oral antifungals were given. She was doing better from that aspect as well. The patient is doi ng much better right now and is medically stable to be discharged with outpatient followup with [facility] ology and primary care physician. She is asked to stop smoking and take good control of her diabetes . She is medically stable to be discharged and is asked to come back to the emergency room in case s ymptoms recur. Total time for this discharge took 35 minutes.
--- NOTE | 2017-01-31 21:58 | PRG ---
DATE OF SERVICE: 01/31/2017 SUBJECTIVE: Ms. Neelam Lloyd did well overnight. Her hemodynamics have been stable. OBJECTIVE: LUNGS: Clear. HEART: Regular rhythm. ABDOMEN: Soft. It was felt that she is stable enough to move out of the Intermediate Care Unit. IMPRESSION: Chronic obstructive pulmonary disease, clinically stable. PLAN: Transfer out of the Critical Care/Intermediate Care Environment.
[2017-02-01] MEDS ORDERED: Furosemide 20 MG TAB PO SCH (09:00)
--- NOTE | 2017-02-03 12:22 | EKG ---
Test Reason : SITTING IN WHEEL WHITNEY Blood Pressure : / mmHG Vent. Rate : 086 BPM Atrial Rate : 086 BPM P-R Int : 144 ms QRS Dur : 136 ms QT Int : 442 ms P-R-T Axes : -26 -25 111 degrees QTc Int : 528 ms Normal sinus rhythm Left bundle branch block Abnormal ECG Confirmed by ANDREW PERRIN ([id number]) on 02/03/2017 12:22:18 PM Referred By: HARMONY Confirmed By:NADREW PERRIN
== END 2017-01-31 15:47 | disposition home or self-care (01) | DRG 308 ==
LOC: ERS 08:34 → IMCU/EMU 10:57
PROVIDERS: ADMIT Internal Medicine; ATTEND Internal Medicine
DX: I48.0 Paroxysmal atrial fibrillation (principal); J96.01 Acute respiratory failure with hypoxia; I50.43 Acute on chronic combined systolic (congestive) and diastolic (congestive) heart failure; I42.8 Other cardiomyopathies; J44.9 Chronic obstructive pulmonary disease, unspecified; B35.4 Tinea corporis; N39.0 Urinary tract infection, site not specified; I11.0 Hypertensive heart disease with heart failure; E11.9 Type 2 diabetes mellitus without complications; B96.20 Unspecified Escherichia coli [E. coli] as the cause of diseases classified elsewhere; E03.9 Hypothyroidism, unspecified; E87.6 Hypokalemia; Z79.01 Long term (current) use of anticoagulants; Z72.0 Tobacco use; Z98.84 Bariatric surgery status; N28.9 Disorder of kidney and ureter, unspecified; I49.9 Cardiac arrhythmia, unspecified; I44.7 Left bundle-branch block, unspecified
CPT/HCPCS: 36415; 36416; 51702; 71010; 80053; 80061; 80069; 80076; 81003; 81015; 82550; 82553; 82565; 83036; 83605; 83735; 83880; 84484; 85014; 85018; 85025; 85049; 85610; 85730; 87040; 87077; 87086; 87186; 93005; 93010; 93306; 93798; 94010; 94660; 96365; 96366; 96367; 96375; 96376; G8978-GP-CJ; G8979-GP-CJ; G8980-GP-CJ; J0696; J1940; J1956; J7050